=== PATIENT | male | born 1975 | race African-American/Black ===

== ENCOUNTER 2016-11-28 15:24 | Emergency (ER) | payer OTHER ==
[~2016-11-28] VITALS: Ht 193 cm; Wt 95.3 kg
--- NOTE | ~2016-11-28 | EKG ---
[address] [place] [address] ELECTROCARDIOGRAM REPORT Name: EMILYANKITA BALTAZAR [id number] Admission: 11/28/16 Attend Phys: Discharge: 11/28/16 Date of : 77 Report #: [id number] THIS REPORT FOR: //name// [facility] ED Test Date: 2016-11-28 Test Time: 15:47:40 Pat Name: ANKITA TERRY Department: Room: Gender: Regulator Tester: Aaliyah ROBLERO : 1975 Requested By: Donnie Casillas Order Number: [id number] MD: Marito Conteh Measurements Intervals [place] Rate: 66 P: 34 [place]: 156 QRS: 49 QRSD: 101 T: 12 QT: 400 QTc: 420 Interpretive Statements Sinus rhythm Probable left ventricular hypertrophy ST elev, probable normal early repol pattern Baseline wander in lead(s) I,III,aVR,aVL No previous ECG available for comparison Electronically Signed On 11-29-2016 13:40:20 [employer]ON SUPERVISOR by Marito Conteh [email or web address] <ELECTRONICALLY SIGNED> By: Marito Conteh MD, [facility] 11/29/16 1340 1547 1547 Marito Conteh MD, [facility] /EPI
[2016-11-28 16:25] LABS: ABSOLUTE NEUTROPHILS 2.3 thou/uL (1.4-8.2); BASOPHILS 0.5 % (0.0-2.0); EOSINOPHILS 1.7 % (0.0-3.0); HEMATOCRIT 38.2 % (42.0-52.0); LYMPHOCYTES 18.8 % (24.0-44.0); MCH 29.5 pg (26.0-34.0); MCHC 34.1 % (28.0-37.0); MCV 86.6 fL (80.0-100.0); MONOCYTES 7.6 % (1.0-8.0); PLATELET COUNT 142 thou/uL (150-400); POLYS 71.4 % (36.0-66.0); RBC 4.41 mil/uL (4.50-6.00); RDW 15.9 % (10.5-14.5); WBC 3.2 thou/uL (4.0-11.0)
[2016-11-28 16:29] LABS: MANUAL DIFF NO
[2016-11-28 16:42] LABS: ANION GAP 11 mmol/L (7-16); BUN 8 mg/dL (7-18); CALCIUM 8.4 mg/dL (8.5-10.1); CHLORIDE 97 mmol/L (98-107); CO2 26 mmol/L (21-32); CREATININE 0.9 mg/dL (0.6-1.3); GLUCOSE 142 mg/dL (70-99); POTASSIUM 3.6 mmol/L (3.5-5.1); SODIUM 134 mmol/L (136-145)
[2016-11-28 16:49] LABS: ALBUMIN 3.6 g/dL (3.4-5.0); ALKALINE PHOSPHATASE 70 U/L (46-116); SGOT 204 U/L (15-37); SGPT 198 U/L (30-65); TOTAL BILIRUBIN 0.5 mg/dL (<0.1-1.0); TOTAL PROTEIN 7.6 g/dL (6.4-8.2); TROPONIN-I < 0.04 ng/mL (<0.04-0.07)
[2016-11-28 17:31] LABS: URINE BLOOD NEGATIVE (Negative); URINE COLOR YELLOW; URINE GLUCOSE-RANDOM* NEGATIVE (Negative); URINE KETONES 1+ (Negative); URINE NITRITE NEGATIVE (Negative); URINE PROTEIN (DIPSTICK) NEGATIVE (Negative); URINE SPECIFIC GRAVITY 1.015 (1.003-1.035)
[2016-11-28 17:32] LABS: ICTOTEST (BILI CONFIRMATORY) Negative (Negative); URINE BILIRUBIN NEGATIVE (Negative)
[2016-11-28] MEDS ORDERED: PHENERGAN 25 MG25 M1 PO (18:48)
[2016-11-28] MEDS ORDERED: CARAFATE 1 GM TA1 G1 PO (18:48)
[2016-11-28] MEDS ORDERED: PEPCID20 MG PO (18:48)
[2016-11-28] MEDS ORDERED: CHLORDIAZEPOXID25 M1 PO (19:18)
[2016-11-28 19:28] VITALS: BP 141/100
== END 2016-11-28 19:29 | disposition home or self-care (01) ==
LOC: ER 15:24
PROVIDERS: Physician Assistant
DX: K29.70 Gastritis, unspecified, without bleeding (principal); R11.2 Nausea with vomiting, unspecified; Z98.890 Other specified postprocedural states

== ENCOUNTER 2019-11-18 12:54 | Emergency (ER) | payer OTHER ==
[~2019-11-18] VITALS: Ht 180.3 cm; Wt 68.0 kg
[~2019-11-18 12:54] MED LIST: CARAFATE 1 GM TA1 G1 PO; CHLORDIAZEPOXID25 M1 PO; PEPCID20 MG PO; PHENERGAN 25 MG25 M1 PO
[2019-11-18] MEDS ORDERED: PROAIR HFA8.5 GM INH (14:33)
[2019-11-18] MEDS ORDERED: IBUPROFEN 600600 M1 PO (14:33)
[2019-11-18] MEDS ORDERED: TESSALON PERLE100 M1 PO (14:33)
[2019-11-18 15:03] VITALS: BP 110/82
== END 2019-11-18 15:04 | disposition home or self-care (01) ==
LOC: ER 12:54
DX: J06.9 Acute upper respiratory infection, unspecified (principal); B34.9 Viral infection, unspecified; Z90.89 Acquired absence of other organs

== ENCOUNTER 2020-04-16 10:15 | Emergency (ER) | payer OTHER ==
[~2020-04-16] VITALS: Ht 193 cm; Wt 90.7 kg
[~2020-04-16 10:15] MED LIST changes: +IBUPROFEN 600600 M1 PO; +PROAIR HFA8.5 GM INH; +TESSALON PERLE100 M1 PO
[2020-04-16 11:14] LABS: ABSOLUTE NEUTROPHILS 2.6 thou/uL (1.4-8.2); BASOPHILS 0.7 % (0.0-2.0); EOSINOPHILS 0.1 % (0.0-3.0); HEMATOCRIT 40.1 % (42.0-52.0); HEMOGLOBIN 13.6 gm/dL (14.0-18.0); LYMPHOCYTES 36.1 % (24.0-44.0); MCH 29.9 pg (26.0-34.0); MCHC 33.9 g/dL (28.0-37.0); MCV 88.2 fL (80.0-100.0); MONOCYTES 8.8 % (1.0-8.0); PLATELET COUNT 291 thou/uL (150-400); POLYS 54.3 % (36.0-66.0); RBC 4.55 mil/uL (4.50-6.00); RDW 16.3 % (10.5-14.5); WBC 4.8 thou/uL (4.0-11.0)
[2020-04-16 11:27] LABS: URINE BILIRUBIN NEGATIVE (Negative); URINE BLOOD NEGATIVE (Negative); URINE CLARITY CLEAR; URINE COLOR YELLOW; URINE GLUCOSE-RANDOM* NEGATIVE (Negative); URINE KETONES NEGATIVE (Negative); URINE LEUKOCYTES-REFLEX NEGATIVE (Negative); URINE NITRITE-REFLEX NEGATIVE (Negative); URINE PROTEIN (DIPSTICK) NEGATIVE (Negative); URINE SPECIFIC GRAVITY <= 1.005 (1.005-1.035); URINE UROBILINOGEN 0.2 E.U./dl (0.2-1.0)
[2020-04-16 11:28] LABS: ANION GAP 14 mmol/L (7-16); BUN 8 mg/dL (7-18); CALCIUM 8.7 mg/dL (8.5-10.1); CHLORIDE 99 mmol/L (98-107); CO2 23 mmol/L (21-32); CREATININE 0.9 mg/dL (0.7-1.3); GLUCOSE 117 mg/dL (74-106); POTASSIUM 3.7 mmol/L (3.5-5.1); SODIUM 136 mmol/L (136-145)
[2020-04-16 11:36] LABS: AMP/METHAMP Negative (Negative); BARBITURATES Negative (Negative); BENZODIAZEPINES Negative (Negative); COCAINE Negative (Negative); METHADONE Negative (Negative); OPIATES Negative (Negative); PCP Negative (Negative)
[2020-04-16 11:39] LABS: ALBUMIN 4.1 g/dL (3.4-5.0); LIPASE 325 U/L (73-393); SGOT 50 U/L (15-37); SGPT 44 U/L (30-65); TOTAL BILIRUBIN 0.3 mg/dL (0.2-1.0); TOTAL PROTEIN 8.2 g/dL (6.4-8.2); TROPONIN-I <0.06 ng/mL (<0.06)
[2020-04-16] MEDS ORDERED: ONDANSETRON ODT8 MG PO (12:40)
[2020-04-16] MEDS ORDERED: PRILOSEC OTC20 MG PO (12:40)
[2020-04-16 12:54] VITALS: BP 121/87
--- NOTE | 2020-04-17 08:40 | EKG ---
[facility] [place] [address] ELECTROCARDIOGRAM REPORT Name: ANKITA TERRY [facility] [id number] Admission: 04/16/20 Attend Phys: Discharge: 04/16/20 Date of : 77 Report #: [id number] THIS REPORT FOR: cc: FAM - Family physician unknown FAM - Family physician unknown Marito Conteh MD [facility] THIS REPORT FOR: //name// [facility] ED Test Date: 2020-04-16 Test Time: 10:53:11 Pat Name: ANKITA TERRY Department: Room: Gender: Clerical Order Filler: : 1975 Requested By: Jaya Mckeon Order Number: [id number] MD: Marito Conteh Measurements Intervals [place] Rate: 97 P: 68 [place]: 164 QRS: 45 QRSD: 103 T: 8 QT: 367 QTc: 466 Interpretive Statements Sinus rhythm Probable left ventricular hypertrophy ST elev, probable normal early repol pattern Compared to ECG 11/28/2016 15:47:40 No significant changes Electronically Signed On 04-17-2020 8:39:19 CDT by Marito Conteh [email or web address] <ELECTRONICALLY SIGNED> By: Marito Conteh MD, [facility]AC 04/17/20 0839 1053 1053 Marito Conteh MD, [facility] /EPI
== END 2020-04-16 13:05 | disposition home or self-care (01) ==
LOC: ER 10:15
PROVIDERS: Emergency Medicine
DX: F10.120 Alcohol abuse with intoxication, uncomplicated (principal); N28.89 Other specified disorders of kidney and ureter; R11.2 Nausea with vomiting, unspecified; F12.10 Cannabis abuse, uncomplicated; Z90.49 Acquired absence of other specified parts of digestive tract; Z79.899 Other long term (current) drug therapy; Y90.8 Blood alcohol level of 240 mg/100 ml or more

== ENCOUNTER 2020-07-04 07:25 | Emergency (ER) | payer OTHER ==
[~2020-07-04] VITALS: Ht 193 cm; Wt 90.7 kg
[~2020-07-04 07:25] MED LIST changes: +ONDANSETRON ODT8 MG PO; +PRILOSEC OTC20 MG PO
[2020-07-04] MEDS ORDERED: NOHOMEMEDICATIONS (07:38)
[2020-07-04] MEDS ORDERED: TRAMADOL 50 MG50 MG PO (08:40)
[2020-07-04] MEDS ORDERED: NAPROSYN500 MG PO (08:40)
[2020-07-04] MEDS ORDERED: METHOCARBAMOL500 M2 PO (08:44)
[2020-07-04 08:57] VITALS: BP 127/94
== END 2020-07-04 08:57 | disposition home or self-care (01) ==
LOC: ER 07:25
DX: S20.212A Contusion of left front wall of thorax, initial encounter (principal); M43.6 Torticollis; M25.512 Pain in left shoulder; Z90.49 Acquired absence of other specified parts of digestive tract; V49.49XA Driver injured in collision with other motor vehicles in traffic accident, initial encounter; Y93.89 Activity, other specified; Y92.89 Other specified places as the place of occurrence of the external cause; Y99.8 Other external cause status